=== PATIENT | male | born 1965 | race Caucasian/White ===

== ENCOUNTER 2019-04-29 11:00 | Outpatient (CLI) | payer BC ==
[~2019-04-29] VITALS: Ht 188 cm; Wt 72.6 kg
== END 2019-04-29 11:19 | disposition home or self-care (01) ==
LOC: PREOP 11:00
PROVIDERS: ATTEND Internal Medicine
DX: Z01.818 Encounter for other preprocedural examination (principal)

== ENCOUNTER 2019-05-01 08:43 | Day surgery (SDC) | payer BC ==
--- NOTE | 2019-04-23 18:24 | HISTORY AND PHYSICAL ---
DATE OF SERVICE: COLONOSCOPY HISTORY AND PHYSICAL HISTORY OF PRESENT ILLNESS: The patient is a 54-year-old white male referred for screening colonoscopy by Dr. Viera. He is deemed to be of average risk. He is not aware of any family history for colon cancer or polyps. He denies any bowel habit change and has noted no blood in the stool. PAST MEDICAL HISTORY: Noncontributory other than migraine headaches and seasonal allergies. . MEDICATIONS: Include sumatriptan 100 mg p.o. p.r.n. migraine, cetirizine, and mometasone furoate for seasonal allergies. PAST SURGICAL HISTORY: He has had a vasectomy in the past as well as wisdom tooth extraction. 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 with no past smoking or drinking history. PHYSICAL EXAMINATION: GENERAL: Reveals a well-appearing white male, normal weight, in no acute distress. VITAL SIGNS: Weight is 169.8 pounds, blood pressure 124/72, heart rate 70 and regular, and respiratory rate 16 and nonlabored. HEENT: Unremarkable. He is a Mallampati class 2 configuration. Posterior pharynx is without erythema. NECK: Revealed no JVD, adenopathy or bruits. CHEST: Clear to auscultation. CARDIOVASCULAR: Reveals a regular rate and rhythm without murmur, S3 or S4. ABDOMEN: Soft, supple without mass, organomegaly or tenderness. EXTREMITIES: Reveal no cyanosis, clubbing or edema. ASSESSMENT: The patient was set up for screening colonoscopy on 04/01/2019. Prep instructions with Suprep kit were given and questions were answered. I thank you for the referral of this pleasant gentleman. Job ID: [id number] DocumentID: [id number] Dictated Date: 04/22/2019 18:23:04 Feed Crusher Date: 04/22/2019 19:13:42 Dictated By: MACIEL HOUSER MD
[~2019-05-01] VITALS: Ht 188 cm; Wt 72.6 kg
[2019-05-01] VITALS (13 sets, daily range): BP systolic 107–140; BP diastolic 66–89
[2019-05-01] MEDS ORDERED: D5 LR IV SOLUTION 1,000 ML IV STA (08:58)
[2019-05-01] MEDS ORDERED: fentaNYL INJECTION 100 MCG/2 ML AMP IVP ONE (09:00)
[2019-05-01] MEDS ORDERED: MIDAZOLAM 2 MG/2 ML (VERSED) VIAL IVP ONE (09:00)
[2019-05-01] MEDS ORDERED: D5 LR IV SOLUTION 1,000 ML IV ONE (09:11)
[2019-05-01] MEDS ORDERED: MIDAZOLAM 2 MG/2 ML (VERSED) VIAL ONE (09:56)
[2019-05-01] MEDS ORDERED: LIDOCAINE JELLY 2% 6 ML SYRINGE ONE (09:56)
[2019-05-01] MEDS ORDERED: fentaNYL INJECTION 100 MCG/2 ML AMP ONE (09:57)
--- NOTE | 2019-05-01 10:12 | Pre-Op Note & Conscious Sedat ---
Pre-Operative Progress Note H&P Reviewed The H&P was reviewed, patient examined and no changes noted. Date H&P Reviewed: May 01, 2019 Time H&P Reviewed: 09:35 Conscious Sedation Pre-Proced ASA Score 1 For ASA 3 and 4: Consider anesthesia and medical clearance. Also, for patients with a history of failed moderate sedation consider anesthesia. Airway Lungs Heart ASA score ASA 1: a normal healthy patient ASA 2: a patient with a mild systemic disease (mid diabetes, controlled hypertension, obesity ASA 3: a patient with a severe systemic disease that limits activity (angina, COPD, prior Myocardial infarction) ASA 4: a patient with an incapacitating disease that is a constant threat to life (CHF, renal failure) ASA 5: a moribund patient not expected to survive 24 hrs. (ruptured aneurysm) ASA 6: a declared brain- patient whose organs are being harvested. For emergent operations, add the letter E after the classification Mallampati Classification Grade 2 Sedation Plan Analgesia, Amnesia, Plan communicated to team members, Discussed options with patient/fam, Discussed risks with patient/fam The patient is an appropriate candidate to undergo the planned procedure, sedation, and anesthesia. The patient immediately re-assessed prior to indication. MACIEL HOUSER MD May 01, 2019 10:12
--- NOTE | 2019-05-01 19:38 | OPERATIVE REPORT ---
DATE OF SERVICE: COLONOSCOPY SUMMARY INDICATION FOR THE PROCEDURE: Screening colonoscopy. The patient was placed in the left lateral decubitus position. Prior to undergoing colonoscopy, digital rectal evaluation was performed. Prostate is normal in size, anodular, nontender to digital inspection. No abnormalities were noted to digital inspection of anal canal or distal rectal vault. The colonoscope was then inserted into the rectum and under direct visualization advanced to cecum. The cecum was identified by identification of the and the cecal strap. Photographic documentation was obtained. Careful inspection was made as the colonoscope withdrawn. The patient tolerated the procedure well and the quality of prep was good. FINDINGS: There was no evidence for internal or external hemorrhoids. The rectum, sigmoid colon, descending colon, transverse colon and ascending colon were unremarkable. ASSESSMENT: Normal colonoscopy to the cecum including digital rectal evaluation of the prostate. The patient is not aware of any family history for colon cancer or polyps. So at this time, we would advocate consideration for repeat screening colonoscopy in 10 years. Job ID: [id number] DocumentID: [id number] Dictated Date: 05/01/2019 12:00:15 Plant Production Worker Date: 05/01/2019 19:37:46 Dictated By: MACIEL HOUSER MD
== END 2019-05-01 11:40 | disposition home or self-care (01) ==
LOC: ENDO 08:43
PROVIDERS: ATTEND Internal Medicine
DX: Z12.11 Encounter for screening for malignant neoplasm of colon (principal); G43.909 Migraine, unspecified, not intractable, without status migrainosus; J30.2 Other seasonal allergic rhinitis; Z79.899 Other long term (current) drug therapy